=== PATIENT | female | born 1965 | race Two or more races ===

== ENCOUNTER 2021-05-31 13:27 | Emergency (ER) | payer MEDICAID ==
[~2021-05-31] VITALS: Ht 160 cm; Wt 104.3 kg
[~2021-05-31 13:27] MED LIST: DICL75TA5; NORG1TAB11; OMEP20CA15; OXYB5TAB16
[2021-05-31 13:41] VITALS: BP 130/88
--- NOTE | 2021-05-31 13:44 | NUR ---
BIB SELF C/O R BIG TOE PAIN X1 DAY S/P R BIG TOE FRACTURE 4 MONTHS AGO. DENIES ANY OTHER TRAUMA TO THE TOE. PAIN WAS SUPPOSED TO GO TO SURGERY TO FIX THE FRACTURE. HX OF ARTHRITIS IN TOES. PAIN IS RATED 10/10 IN SEVERITY. A&OX4. AMBULATORY. PEDAL PULSES 2+ BILATERALLY. UNABLE TO WIGGLE R TOES.
--- NOTE | 2021-05-31 14:21 | NUR ---
RADIOLOGY AT BEDSIDE
[2021-05-31] MEDS ORDERED: KETOROLAC TROMETHAMINE INJ 30 MG/ML VIAL IM ONE (14:30)
[2021-05-31] MEDS ORDERED: KETOROLAC TROMETHAMINE INJ 30 MG/ML VIAL ONE (14:41)
== END 2021-05-31 16:42 | disposition home or self-care (01) ==
LOC: ER 13:35
DX: S93.521A Sprain of metatarsophalangeal joint of right great toe, initial encounter (principal); I10 Essential (primary) hypertension; Z79.899 Other long term (current) drug therapy; Z98.890 Other specified postprocedural states; X58.XXXA Exposure to other specified factors, initial encounter; Y93.89 Activity, other specified; Y92.89 Other specified places as the place of occurrence of the external cause; Y99.8 Other external cause status
CPT/HCPCS: 73630; 96372; 99283; J1885

== ENCOUNTER → 2024-09-04 | Emergency (ER) | payer MEDICAID ==
[~2024-09-04] VITALS: Ht 160 cm; Wt 91.6 kg
[~2024-09-04] MED LIST changes: +KETOROLAC TROMETHAMINE INJ 30 MG/ML VIAL ONE
[2024-09-04 02:41] LABS: APPEARANCE,URINE CLEAR (CLEAR); BILIRUBIN,URINE NEGATIVE (NEGATIVE); BLOOD, URINE NEGATIVE Ery/uL (NEGATIVE); COLOR,URINE YELLOW (YELLOW); KETONES,URINE NEGATIVE (NEGATIVE); LEUKOCYTE ESTERASE ,URINE NEGATIVE (NEGATIVE); NITRITE, URINE NEGATIVE (NEGATIVE); PROTEIN,URINE NEGATIVE (NEGATIVE); UGLUCOSE NEGATIVE (NEGATIVE); UROBILINOGEN,URINE 0.2 EU/dL (0.2)
[2024-09-04 02:44] LABS: PREGNANCY TEST URINE QUAL NEGATIVE (NEGATIVE)
[2024-09-04 03:05] LABS: BASOPHILS % (AUTO) 0.5 % (0.0-2.0); EOSINOPHILS # (AUTO) 0.2 K/uL (0.0-0.7); EOSINOPHILS % (AUTO) 1.9 % (0.0-6.0); HEMATOCRIT 37 % (33-45); HEMOGLOBIN 12.5 g/dL (11.5-14.8); LYMPHOCYTES # (AUTO) 1.5 K/uL (0.8-4.8); LYMPHOCYTES % (AUTO) 17.4 % (20.0-44.0); MEAN CORPUSCULAR HEMOGLOBIN 30 PG (26.0-33.0); MEAN CORPUSCULAR HGB CONC 34 g/dl (31.0-36.0); MEAN CORPUSCULAR VOLUME 90 fL (82-100); MONOCYTES # (AUTO) 0.7 K/uL (0.1-1.30); NEUTROPHILS # (AUTO) 6.4 K/uL (1.8-8.9); NEUTROPHILS % (AUTO) 72.2 % (43.0-81.0); PLATELET COUNT (AUTO) 176 K/uL (150-450); RED BLOOD CELL COUNT(AUTO) 4.16 MIL/uL (4.0-5.2); RED CELL DISTRIBUTION WIDTH 13.7 % (11.5-15.0); WHITE BLOOD COUNT (AUTO) 8.8 K/uL (4.3-11.0)
[2024-09-04] MEDS: KETOROLAC TROMETHAMINE 15 MG/ML VIAL IV ONE (03:13)
[2024-09-04 03:16] LABS: ALBUMIN 3.3 g/dL (3.4-5.0); BILIRUBIN,DIRECT 0.1 mg/dL (0.0-0.2); BILIRUBIN,TOTAL 0.6 mg/dL (0.2-1.0); CALCIUM, SERUM 9.2 mg/dL (8.5-10.1); CREATININE 1.2 mg/dL (0.6-1.3); POTASSIUM 4.1 mmol/L (3.5-5.1); TOTAL PROTEIN, SERUM 6.9 g/dL (6.4-8.2)
[2024-09-04 06:02] VITALS: BP 115/71; TEMP 98; O2SAT 97
== END | disposition home or self-care (01) ==
LOC: ER 01:32
DX: R10.2 Pelvic and perineal pain (principal); R30.0 Dysuria; I10 Essential (primary) hypertension; Z90.49 Acquired absence of other specified parts of digestive tract; Z60.2 Problems related to living alone; Z87.39 Personal history of other diseases of the musculoskeletal system and connective tissue
CPT/HCPCS: 99285; 74176; 96374; 76856; 85025; 80048; 83690; 80076; 84703; 81003; 36415; J1885

== ENCOUNTER 2025-07-19 19:54 | Emergency (ER) | payer MEDICAID ==
[~2025-07-19] VITALS: Ht 160 cm; Wt 77.1 kg
[~2025-07-19 19:54] MED LIST changes: -KETOROLAC TROMETHAMINE INJ 30 MG/ML VIAL ONE
[2025-07-19 20:48] VITALS: BP 125/71; TEMP 98.5
[2025-07-19] MEDS ORDERED: METH4TAB17 PO (21:31)
[2025-07-19] MEDS ORDERED: AMOX-430 PO (21:31)
[2025-07-19 22:21] VITALS: O2SAT 99
== END 2025-07-19 22:21 | disposition home or self-care (01) ==
LOC: ER 19:57
DX: H00.013 Hordeolum externum right eye, unspecified eyelid (principal); I10 Essential (primary) hypertension; J32.9 Chronic sinusitis, unspecified; M19.90 Unspecified osteoarthritis, unspecified site

== ENCOUNTER 2025-08-01 20:59 | Emergency (ER) | payer MEDICAID ==
[~2025-08-01] VITALS: Ht 160 cm; Wt 76.2 kg
[~2025-08-01 20:59] MED LIST changes: +AMOX-430 PO; +METH4TAB17 PO
[2025-08-01 21:38] LABS: APPEARANCE,URINE CLOUDY (CLEAR); BLOOD, URINE 3+ Ery/uL (NEGATIVE); LEUKOCYTE ESTERASE ,URINE 2+ (NEGATIVE); NITRITE, URINE POSITIVE (NEGATIVE); UGLUCOSE NEGATIVE (NEGATIVE)
[2025-08-01 21:49] LABS: PLATELET COUNT (AUTO) 177 K/uL (150-450); RED BLOOD CELL COUNT(AUTO) 4.19 MIL/uL (4.0-5.2); RED CELL DISTRIBUTION WIDTH 13.4 % (11.5-15.0); WHITE BLOOD COUNT (AUTO) 10.9 K/uL (4.3-11.0)
[2025-08-01 21:54] LABS: ADD URINE CULTURE YES; SQUAMOUS EPITHELIAL CELL,UR 0-2 /HPF (None Seen)
[2025-08-01 21:55] LABS: CALCIUM, SERUM 8.7 mg/dL (8.5-10.1); CREATININE 0.8 mg/dL (0.6-1.3); SODIUM SERUM 142.0 mmol/L (136-145); UREA NITROGEN, BLOOD 14.0 mg/dL (7-18)
[2025-08-01 22:00] LABS: INR 1.02 (0.91-1.10)
[2025-08-01] MEDS: CEPHALEXIN MONOHYDRATE 500 MG CAPSULE PO ONE (22:30)
[2025-08-01] MEDS: IBUPROFEN 400 MG TABLET PO ONE (22:30)
[2025-08-02] MEDS ORDERED: POLY119P PO (01:31)
[2025-08-02] MEDS ORDERED: IBUP-1957 PO (01:31)
[2025-08-02] MEDS ORDERED: CEPH-570 PO (01:31)
[2025-08-02 01:48] VITALS: BP 130/80; TEMP 98; O2SAT 99
== END 2025-08-02 01:48 | disposition home or self-care (01) ==
LOC: ER 21:06
DX: N39.0 Urinary tract infection, site not specified (principal); N89.9 Noninflammatory disorder of vagina, unspecified; I10 Essential (primary) hypertension; Z60.2 Problems related to living alone
CPT/HCPCS: 36415; 80048-TC; 81001; 85025-TC; 85730-TC; 87086-TC; 87186-TC